=== PATIENT | male | born 1980 | race Caucasian/White ===

== ENCOUNTER → 2016-10-04 | Day surgery (SDC) | payer OTHER ==
[2016-10-03 15:20] VITALS: BMI 40.0
[~2016-10-04] VITALS: Ht 175.3 cm; Wt 124.1 kg
[~2016-10-04] MED LIST: DIAZ-165 PO; IBUP-1451 PO; LIDOCAINE HCL 2% 2 ML VIAL (20MG/ML) ONE; MIDAZOLAM HCL 1 MG/ML 2ML VIAL ONE; OMEP20TA PO; ONDANSETRON INJ 2 MG/ML 2 ML VIAL IV PRN; PARO40TA2 PO; PROPOFOL IV EMULSION 10 MG/ML 20 ML VIAL IV ONE; TRAM-10 PO
[2016-10-04 08:39] VITALS: TEMP 36.8; Ht 175.3 cm; Wt 124.1 kg
--- NOTE | 2016-10-04 09:06 | Endo History and Physical ---
History & Physical Date of Service: Oct 04, 2016. Chief Complaint: hx polyps, blood in stool Referring Physician: Dr Andujar History of Present Illness Patient with a personal and family history of colon polyp for a surveillance colonoscopy today. Past Surgical History Hx Cardiac Surgery: No Hx Internal Defibrillator: No Hx Pacemaker: No Hx Abdominal Surgery: Yes (appy. colonoscopy) Hx of Implantable Prosthesis: No Hx Post-Op Nausea and Vomiting: No Hx Cancer Surgery: No Hx Thoracic Surgery: No Hx Orthopedic: No Hx Urinary Tract Surgery: No Family History Polyp Social History Smoking Status: Former Smoker Hx Substance Use: No Hx Alcohol Use: Yes (seldom social) Allergies Coded Allergies: No Known Allergies (Unverified , 10/03/16) Current Medications Reported Home Medications Medications Dose Route/Sig Max Daily Dose Days Date Category Omeprazole 20 Mg Tab 40 Mg PO HS 10/03/16 Reported Paroxetine (Paroxetine HCl) 40 Mg Tab 2 Tab PO HS 10/03/16 Reported Vital Signs Weight (Kilograms): 124.09 Height (Feet): 5 Height (Inches): 9 Date Time Temp Pulse Resp B/P Pulse Ox O2 Delivery O2 Flow Rate FiO2 10/04/16 08:39 36.8 99 16 124/78 92 Room Air Physical Exam General Appearance: no apparent distress Respiratory/Chest: Auscultation: breath sounds normal Cardiovascular: Heart Auscultation: RRR Abdomen: Inspection & Palpation: soft Assessment and Plan Colonoscopy for evaluation of colon polyps. We have discussed the risks to include bleeding, infection, perforation, pain, and missed polyps.
--- NOTE | 2016-10-04 09:32 | Discharge Instructions ---
Endoscopy Patient Instructions Date / Procedure(s) Performed Oct 04, 2016. Colonoscopy Allergy Information Coded Allergies: No Known Allergies (Unverified , 10/03/16) Discharge Date / Findings Oct 04, 2016. 2 small colon polyps Internal hemorrhoids Medication Instructions Stopped Medication(s): paroxitine omeprazole 10/02 Reported Home Medications Medications Dose Route/Sig Max Daily Dose Days Date Category Omeprazole 20 Mg Tab 40 Mg PO HS 10/03/16 Reported Paroxetine (Paroxetine HCl) 40 Mg Tab 2 Tab PO HS 10/03/16 Reported Provider Instructions Activity Restrictions - No exercising or heavy lifting for 24 hours. - Do not drink alcohol the day of the procedure. - Do not drive a car or operate machinery until the day after the procedure. - Do not make any important decisions or sign important papers in 24 hours after the procedure. Following Day: - Return to full activity which may include returning to work/school. Diet Start your diet with liquids and light foods (jello, soup, juice, toast). Then eat your usual diet if not nauseated. Treatment For Common After Affects For mild abdominal pain, bloating, or excessive gas: - Rest - Eat lightly - Lie on right side Follow-Up Information Await pathology results Colonoscopy in 3 to 5 years Anesthesia Information What You Should Know You have had a procedure that required some medicine to reduce anxiety and discomfort. This treatment is called moderate sedation. After receiving the treatment, you may be sleepy, but you will be able to breathe on your own. The effects of the treatment may last for several hours. Follow these instructions along with Activity/Diet recommendations noted above: * Do NOT do anything where dizziness or clumsiness would be dangerous. * Rest quietly at home today, then you can be up and about tomorrow. * Have a responsible person stay with you the rest of today. * You may have had an I.V. today. If so, you may take the dressing off later today. Recommendations Call your doctor if: * Trouble breathing * Continuous vomiting for more than 24 hours * Temperature above 101 degrees * Severe abdominal pain or bloating * Pain not relieved by pain medicine ordered * There is increased drainage or redness from any incision * A large amount of rectal bleeding greater than 2-3 tablespoons. (If you had a polyp/s removed or have hemorrhoids, a small amount of blood - from the rectum is to be expected.) * You have any unanswered questions or concerns. IN THE EVENT OF A SERIOUS EMERGENCY, GO TO THE NEAREST EMERGENCY ROOM Your discharge instructions were prepared by provider Bonnie Quinones. Patient Instructions Signature Page Lc Medrano Patient (or Guardian) Signature/Date: I have read and understand the instructions given to me by my caregivers. Caregiver/RN/Doctor Signature/Date: The above-named patient and/or guardian has received patient instructions on this date. + Original Patient Signature Page (only) stays with chart. Please make copy for patient.
--- NOTE | 2016-10-04 09:37 | GI REPORT ---
Procedure Date: 10/04/2016 9:16 AM Procedure: Colonoscopy Indications: High risk colon cancer surveillance: Personal history of colonic polyps Medicines: Monitored Anesthesia Care Complications: No immediate complications. Estimated blood loss: Minimal. Estimated Blood Loss: Estimated blood loss was minimal. Procedure: Pre-Anesthesia Assessment: - Prior to the procedure, a History and Physical was performed, and patient medications, allergies and sensitivities were reviewed. The patient's tolerance of previous anesthesia was reviewed. - The risks and benefits of the procedure and the sedation options and risks were discussed with the patient. All questions were answered and informed consent was obtained. - Patient identification and proposed procedure were verified prior to the procedure by the physician, the nurse and the machine sole leveler. The procedure was verified in the procedure room. - Pre-procedure physical examination revealed no contraindications to sedation. - ASA Grade Assessment: II - A patient with mild systemic disease. - After reviewing the risks and benefits, the patient was deemed in satisfactory condition to undergo the procedure. - The anesthesia plan was to use monitored anesthesia care (MAC). - Immediately prior to administration of medications, the patient was re-assessed for adequacy to receive sedatives. - The heart rate, respiratory rate, oxygen saturations, blood pressure, adequacy of pulmonary ventilation, and response to care were monitored throughout the procedure. - The physical status of the patient was re-assessed after the procedure. After I obtained informed consent, the scope was passed under direct vision. Throughout the procedure, the patient's blood pressure, pulse, and oxygen saturations were monitored continuously. The scope was introduced through the anus and advanced to the terminal ileum. The colonoscopy was performed without difficulty. The patient tolerated the procedure well. The quality of the bowel preparation was good. Findings: The perianal and digital rectal examinations were normal. Pertinent negatives include normal sphincter tone. The terminal ileum appeared normal. Two sessile polyps were found in the rectum. The polyps were 5 to 6 mm in size. These polyps were removed with a cold snare. Resection was complete, but the polyp tissue was only partially retrieved. Estimated blood loss was minimal. Internal hemorrhoids were found during retroflexion. The hemorrhoids were mild. Estimated blood loss: none. The exam was otherwise without abnormality. Impression: - The examined portion of the ileum was normal. - Two 5 to 6 mm polyps in the rectum, removed with a cold snare. Complete resection. Partial retrieval. - Internal hemorrhoids. Recommendation: - Discharge patient to home (ambulatory). - Advance diet as tolerated today. - Continue present medications. - Repeat colonoscopy in 3 - 5 years for surveillance based on pathology results. - Return to GI office PRN. Bonnie Quinones D.O. Bonnie Quinones, 10/04/2016 9:36:39 AM This report has been signed electronically. Note Initiated On: 10/04/2016 9:16 AM I attest to the content of the Intraoperative Record and orders documented therein, exceptions below
[2016-10-04 10:08] VITALS: BP 129/70; PULSE 96; O2SAT 96
--- NOTE | 2016-10-04 10:12 | Anesthesiology Progress Note ---
Anesthesia Post Op Note Date & Time Oct 04, 2016 at 10:12 Vital Signs Pain Intensity: 0 Vital Signs Past 12 Hours Date Time Temp Pulse Resp B/P Pulse Ox O2 Delivery O2 Flow Rate FiO2 10/04/16 10:08 96 20 129/70 96 Room Air 10/04/16 09:51 97 20 154/80 95 Room Air 10/04/16 09:36 108 18 143/80 95 Room Air 10/04/16 08:39 36.8 99 16 124/78 92 Room Air Notes Mental Status: alert / awake / arousable Nausea / Vomiting: adequately controlled Pain: adequately controlled Airway Patency, RR, SpO2: stable & adequate BP & HR: stable & adequate Hydration State: stable & adequate Anesthetic Complications: no major complications apparent
== END | disposition home or self-care (01) ==
LOC: C.GI 08:25
PROVIDERS: ATTEND Internal Medicine Gastroenterology
DX: Z12.11 Encounter for screening for malignant neoplasm of colon (principal); Z86.010 Personal history of colon polyps; K62.1 Rectal polyp; K64.8 Other hemorrhoids; Z83.71 Family history of colonic polyps; Z90.89 Acquired absence of other organs; Z87.891 Personal history of nicotine dependence; K21.9 Gastro-esophageal reflux disease without esophagitis

== ENCOUNTER 2016-12-19 09:46 | Emergency (ER) | payer OTHER ==
[~2016-12-19] VITALS: Ht 177.8 cm; Wt 123.0 kg
[~2016-12-19 09:46] MED LIST changes: -DIAZ-165 PO; -IBUP-1451 PO; -LIDOCAINE HCL 2% 2 ML VIAL (20MG/ML) ONE; -MIDAZOLAM HCL 1 MG/ML 2ML VIAL ONE; -ONDANSETRON INJ 2 MG/ML 2 ML VIAL IV PRN; -PROPOFOL IV EMULSION 10 MG/ML 20 ML VIAL IV ONE; -TRAM-10 PO
[2016-12-19 09:50] VITALS: TEMP 36.8; Ht 177.8 cm; Wt 123.0 kg
[2016-12-19] MEDS ORDERED: TRAMADOL HCL 50 MG TAB PO STA (09:59)
[2016-12-19] MEDS ORDERED: DIAZEPAM 5MG TAB PO STA (09:59)
[2016-12-19] MEDS ORDERED: IBUP-1451 PO (10:10)
--- NOTE | 2016-12-19 10:14 | EMERGENCY ROOM VISIT NOTE ---
History Report prepared by Smith: Cammy Singh Under the Supervision of: Dr. Nabeel Jarrett M.D. First contact with patient: 09:53 Chief Complaint: BACK PAIN Stated Complaint: LOWER BACK PAIN-WORK RELATED INJURY History of Present Illness The patient is a 36 year old male who presents to the Emergency Room with complaints of persistent lower back pain starting 0830 this morning. The patient works for the [employer]. He was at work reaching for something when he got a sudden pain in his mid lower back. He rates his discomfort as an 8/10 in severity. The pain worsens with movement and he describes the pain as stabbing. He does not have pain at rest. He went to the medical area at his work where he was given some ibuprofen. He was brought to the hospital for further evaluation. He reports nausea with the pain. The pain does not radiate down to his legs. He has not had any back problems in many years. He denies any history of back surgeries. He denies any other medical problems. Source of History: patient Onset: 0830 this morning Position: back (lower) Symptom Intensity: 8/10 Quality: stabbing Timing: other (persistent) Modifying Factors (Worsening): movement Modifying Factors (Relieving): rest Associated Symptoms: + nausea Note: Pt denies leg pain. Review of Systems See HPI for pertinent positives & negatives. A total of 10 systems reviewed and were otherwise negative. Past Medical & Surgical Surgical Problems: (1) History of appendectomy Family History Diabetes mellitus FH: heart disease Hypertension Social History Smoking Status: Never Smoker Alcohol Use: occasionally Marital Status: Housing Status: lives with significant other Occupation Status: employed Current/Historical Medications Scheduled Omeprazole (Omeprazole), 40 MG PO HS Paroxetine HCl (Paroxetine), 2 TAB PO HS Scheduled PRN Diazepam (Valium), 5 MG PO TID PRN for Muscle Spasms Ibuprofen Tab (Motrin), 800 MG PO Q8H PRN for Pain Tramadol (Ultram), 100 MG PO Q4H PRN for Pain Allergies Coded Allergies: No Known Allergies (Unverified , 12/19/16) Physical Exam Vital Signs Date Time Temp Pulse Resp B/P Pulse Ox O2 Delivery O2 Flow Rate FiO2 12/19/16 09:50 36.8 93 18 127/85 96 Room Air Physical Exam GENERAL: Patient is in no acute distress. HEENT: No acute trauma, normocephalic atraumatic, mucous membranes moist, no nasal congestion, no scleral icterus. NECK: No stridor, no adenopathy, no meningismus, trachea is midline. LUNGS: Clear to auscultation bilaterally, no wheeze, no rhonchi, breath sounds equal. HEART: Without murmurs gallops or rubs, regular rate and rhythm. ABDOMEN: Soft, nontender, bowel sounds positive, no hernias, no peritonitis. BACK: No focal lumbar spine tenderness, no bony step off, pain worsens with any movement. EXTREMITIES: No cyanosis or edema, full range of motion of all the joints without pain or difficulty, no signs for acute trauma. NEUROLOGIC: Oriented x 3, no acute motor or sensory deficits, no focal weakness. SKIN: No rash, no jaundice, no diaphoresis. Medical Decision & Procedures ER Provider Diagnostic Interpretation: X-ray results as stated below per interpretation by me and the radiologist: LUMBAR SPINE 5 VIEWS HISTORY: low back pain COMPARISON: None. FINDINGS: There is no fracture. No subluxation. Minimal to very mild degenerative disc change. IMPRESSION: No fracture or subluxation within the lumbar spine. Minimal degenerative disc change. No acute process. Electronically signed by: César Jamison M.D. 12/19/2016 10:43 AM Dictated Date/Time: 12/19/2016 10:42 AM Medications Administered Medications (Trade) Dose Ordered Sig/Devan Route Start Time Stop Time Status Last Admin Dose Admin Diazepam (Valium Tab) 5 mg NOW STAT PO 12/19/16 09:59 12/19/16 10:02 DC 12/19/16 10:08 5 MG Tramadol HCl (Ultram Tab) 100 mg NOW STAT PO 12/19/16 09:59 12/19/16 10:02 DC 12/19/16 10:08 100 MG ED Course 0954: The patient was evaluated in room B10. A complete history and physical exam was performed. 0959: Tramadol HCl 100 mg PO, Diazepam 5 mg PO. 1047: I reevaluated the patient. I discussed results and discharge instructions : he verbalized understanding and agreement. The patient is ready for discharge. Medical Decision Differential diagnosis: lumbar spine fracture, lumbar sprain, musculoskeletal pain, nerve impingement, herniated disc disease. The patient presents with lower back pain. He was stretching when he felt something pull. Films of the lumbar spine are unremarkable for fracture or bony dislocation. He has not fallen or suffered significant trauma. There has been no fever. No pain radiation down his legs. The patient has a lumbar strain. He was given oral tramadol and oral Valium. He already had received ibuprofen prior to arrival. He is being discharged with the above medications to help him through the next few days. Rest, hydration and avoidance of lifting were encouraged. He will need to see a Workmen's Compensation doctor for advice on when to return to work. [place] Drug Monitoring Program Search Results: patient reviewed within database, no issues identified Impression Primary Impression: Lower back pain Additional Impression: Work related injury Scribe Attestation The scribe's documentation has been prepared under my direction and personally reviewed by me in its entirety. I confirm that the note above accurately reflects all work, treatment, procedures, and medical decision making performed by me. Departure Information Dispostion Home / Self-Care Prescriptions Diazepam (Valium) 5 Mg Tab 5 MG PO TID Y for Muscle Spasms, #12 TAB Prov: Nabeel Jarrett M.D. 12/19/16 Tramadol (Ultram) 50 Mg Tab 100 MG PO Q4H Y for Pain for 3 Days, #24 TAB Prov: Nabeel Jarrett M.D. 12/19/16 Referrals Allegra Andujar M.D. (PCP) Forms HOME CARE DOCUMENTATION FORM, IMPORTANT VISIT INFORMATION, Work Instructions Patient Instructions My [facility] [employer] Additional Instructions ice to the area for 30 minutes at a tiime for the next 2 days, after 2 days switch to heat stretching and massage can be helpful no lifting or bending for now see workmans comp doctor for timing and info about returning to work--could use [facility]---[phone] ibuprofen 800 mg 3x per day for 5 days valium 3x per day for muscle relaxation tramadol 1-2 tab every 4 hour for more severe pain return if worsening Problem Qualifiers
--- NOTE | 2016-12-19 10:44 | DIAGNOSTIC IMAGING REPORT ---
LUMBAR SPINE 5 VIEWS HISTORY: low back pain COMPARISON: None. FINDINGS: There is no fracture. No subluxation. Minimal to very mild degenerative disc change. IMPRESSION: No fracture or subluxation within the lumbar spine. Minimal degenerative disc change. No acute process. Electronically signed by: César Jamison M.D. 12/19/2016 10:43 AM Dictated Date/Time: 12/19/2016 10:42 AM
[2016-12-19] MEDS ORDERED: TRAM-10 PO (10:54)
[2016-12-19] MEDS ORDERED: DIAZ-165 PO (10:54)
[2016-12-19 11:15] VITALS: BP 122/79; PULSE 88; O2SAT 98
== END 2016-12-19 11:16 | disposition home or self-care (01) ==
LOC: C.EDB 09:48
DX: M54.5 Low back pain (principal); Y99.0 Civilian activity done for income or pay; Z83.3 Family history of diabetes mellitus; Z82.49 Family history of ischemic heart disease and other diseases of the circulatory system

== ENCOUNTER 2017-07-29 07:28 | Observation (INO) | payer OTHER ==
[~2017-07-29] VITALS: Ht 177.8 cm; Wt 124.0 kg
[~2017-07-29 07:28] MED LIST changes: +IBUP-1451 PO
--- NOTE | 2017-07-29 07:41 | EMERGENCY ROOM VISIT NOTE ---
History Report prepared by Smith: Calista Andujar Under the Supervision of: Dr. Nabeel Jarrett M.D. First contact with patient: 07:29 Stated Complaint: CHEST PAIN History of Present Illness The patient is a 37 year old male who presents to the Emergency Room with complaints of chest pain beginning a little over an hour ago. The patient states that he was driving a work vehicle when he got a severe sharp chest pain. He states that he also was sweating, nauseous, and had shortness of breath. The pain worsened with breathing. He reports that he currently has chest tightness and currently rates his pain at a 3/10. The patient was given aspirin and 2 squirts of Nitroglycerin prior to arrival, which he states helped to alleviate his pain. The patient denies having symptoms like this the last couple of days. He denies a history of heart attacks, asthma, and blood clots. He does report a history of hyperlipidemia. The patient denies travel in the last couple of months. He reports that he used to smoke a pack per day for 12 years, but that he quit 3-4 years ago. Source of History: patient Onset: little over an hour ago Position: chest Symptom Intensity: severe Quality: sharp Associated Symptoms: + diaphoresis, + SOB, + nausea Review of Systems See HPI for pertinent positives & negatives. A total of 10 systems reviewed and were otherwise negative. Past Medical & Surgical Medical Problems: (1) Chest pain Surgical Problems: (1) History of appendectomy Family History Diabetes mellitus FH: heart disease Hypertension Social History Smoking Status: Former Smoker Alcohol Use: occasionally Marital Status: Housing Status: lives with significant other Occupation Status: employed Current/Historical Medications Scheduled Omeprazole (Omeprazole), 40 MG PO HS Paroxetine HCl (Paroxetine), 2 TAB PO HS Allergies Coded Allergies: No Known Allergies (Unverified , 07/29/17) Physical Exam Vital Signs Date Time Temp Pulse Resp B/P (MAP) Pulse Ox O2 Delivery O2 Flow Rate FiO2 07/29/17 10:00 87 20 106/62 96 Room Air 07/29/17 09:13 77 20 111/70 94 Room Air 07/29/17 08:16 81 20 108/66 95 Room Air 07/29/17 07:38 94 Room Air 07/29/17 07:33 103 07/29/17 07:31 94 Room Air 07/29/17 07:31 36.6 107 20 144/79 94 Room Air Physical Exam GENERAL: Patient is in no acute distress. HEENT: No acute trauma, normocephalic atraumatic, mucous membranes moist, no nasal congestion, no scleral icterus. NECK: No stridor, no adenopathy, no meningismus, trachea is midline. LUNGS: Clear to auscultation bilaterally, no wheeze, no rhonchi, breath sounds equal. HEART: Mildly tachycardic with a regular rhythm. No murmurs. Chest: Nontender chest wall. ABDOMEN: Soft, nontender, bowel sounds positive, no hernias, no peritonitis. EXTREMITIES: No cyanosis or edema, full range of motion of all the joints without pain or difficulty, no signs for acute trauma. NEUROLOGIC: Oriented x 3, no acute motor or sensory deficits, no focal weakness. SKIN: No rash, no jaundice, no diaphoresis. Medical Decision & Procedures ER Provider Diagnostic Interpretation: Radiology results as stated below per my review and radiologist interpretation: CHEST ONE VIEW PORTABLE CLINICAL HISTORY: Atypical chest pain COMPARISON STUDY: No previous studies for comparison. FINDINGS: The heart is at the upper limits of normal in size. There is mild interstitial thickening which may in part be related to technical factors. There is no focal pulmonary consolidation. There is no overt failure. There is no pleural fluid.[ IMPRESSION: AP portable study. No evidence of focal pulmonary consolidation Electronically signed by: Mohan Bruce M.D. 07/29/2017 8:04 AM Dictated Date/Time: 07/29/2017 8:[address] ANGIOGRAM OF THE CHEST CLINICAL HISTORY: Atypical chest pain with diaphoresis nausea. Pain radiates the shoulder and back. COMPARISON STUDY: Chest x-ray dated 07/29/2017 TECHNIQUE: Following the IV administration of 115 mL of Optiray-320, CT angiogram of the thorax was performed from the thoracic inlet to the lung bases utilizing the pulmonary embolus protocol. Images are reviewed in the axial, sagittal, and coronal planes. IV contrast was administered without complication. MIP imaging was performed. A dose lowering technique was utilized adhering to the principles of ALARA. CT DOSE: 723.10 mGy.cm FINDINGS: There is a multinodular thyroid gland including a 24 mm left lobe thyroid nodule. There is mild hepatic steatosis. No pathologically enlarged axillary mediastinal or hilar lymph nodes were visualized. There was no evidence of thoracic aortic dilatation. There were no pulmonary artery filling defects to indicate acute pulmonary embolism. No pleural effusions are visualized. There is no focal pulmonary consolidation. There are dependent atelectatic changes with areas of air trapping. IMPRESSION: 1. No evidence of acute pulmonary embolism 2. No evidence of focal pulmonary consolidation 3. Dependent atelectatic changes with areas of air trapping Electronically signed by: Mohan Bruce M.D. 07/29/2017 9:12 AM Dictated Date/Time: 07/29/2017 9:07 AM Laboratory Results 07/29/17 07:35 07/29/17 07:35 07/29/17 09:46 Test 07/29/17 07:35 07/29/17 09:46 Red Blood Count 5.17 M/uL (4.7-6.1) Mean Corpuscular Volume 84.1 fL (80-100) Mean Corpuscular Hemoglobin 31.3 pg (25-34) Mean Corpuscular Hemoglobin Concent 37.2 g/dl (32-36) RDW Standard Deviation 39.4 fL (36.4-46.3) RDW Coefficient of Variation 13.0 % (11.5-14.5) Mean Platelet Volume 10.8 fL (7.4-10.4) Prothrombin Time 10.0 SECONDS (9.0-12.0) Prothromb Time International Ratio 1.0 (0.9-1.1) Activated Partial Thromboplast Time 27.3 SECONDS (21.0-31.0) Partial Thromboplastin Ratio 1.1 Anion Gap 11.0 mmol/L (3-11) Est Creatinine Clear Calc Drug Dose 159.3 ml/min Estimated GFR () 129.0 Estimated GFR (Non- 111.3 BUN/Creatinine Ratio 10.3 (10-20) Calcium Level 8.8 mg/dl (8.5-10.1) Total Bilirubin 0.5 mg/dl (0.2-1) Alanine Aminotransferase (ALT/SGPT) 57 U/L (12-78) Alkaline Phosphatase 67 U/L (45-117) Total Protein 7.0 gm/dl (6.4-8.2) Albumin 3.8 gm/dl (3.4-5.0) Globulin 3.2 gm/dl (2.5-4.0) Albumin/Globulin Ratio 1.2 (0.9-2) Aspartate Amino Transf (AST/SGOT) U/L (15-37) Total Creatine Kinase U/L (39-308) Laboratory results reviewed by me. Medications Administered Medications (Trade) Dose Ordered Sig/Devan Route Start Time Stop Time Status Last Admin Dose Admin Nitroglycerin (Nitroglycerin 2% Oint) 1 inch NOW STAT EXT 07/29/17 09:25 07/29/17 09:26 DC 07/29/17 09:25 1 INCH ECG Indication: chest pain Rate (beats per minute): 104 Rhythm: sinus tachycardia Findings: no acute ischemic change, no ectopy, other (possible old anterior infarct) ED Course 07: The patient was evaluated in room A2. A complete history and physical exam was performed. 919: I checked on the patient and updated him on his results. 25: Ordered Nitroglycerin 1 inch EXT. 0941: Upon reexamination the patient is resting. I discussed results and treatment plan with the patient. He verbalizes agreement and understanding. [facility] We discussed the patient's results and findings. The patient will be evaluated by Dr. Fuentes for further management. Medical Decision The patient is a 37 year old male who presents to the ED with complaints of chest pain. Differential diagnoses considered include musculoskeletal pain, aortic dissection, pulmonary embolism, pneumonia, myocardial infarction, anemia , and electrolyte imbalance. There is no leukocytosis or concerning anemia. No significant electrolyte abnormality, kidney failure or hepatitis. There is no coagulopathy. EKG showed a mild sinus tachycardia, no acute ischemia. Cardiac enzyme testing times one is not consistent with acute cardiac injury. Chest film did not show pneumonia, mediastinal widening or pneumothorax. Chest CT does not show evidence for PE or for aortic dissection. The patient presents with precordial chest pain. He had received aspirin prior to arrival. He did receive some nitro paste while in the ER. His pain seems to have improved with the nitroglycerin and aspirin. The lab did contact us. The patient had so much lipid in his blood that some tests could not be run. The patient has a family history of coronary disease. He has a very high cholesterol based on the lab phone call, he is a previous smoker. With his cardiac risk factors, a hospital stay was felt warranted. I spoke to the patient and case management. The on-call hospitalist was consulted. Medication Reconcilliation Current Medication List: was personally reviewed by me Blood Pressure Screening Patient's blood pressure: Elevated blood pressure Blood pressure disposition: Elevated BP felt to be situational Consults Time Called: [phone] Consulting Physician: Dr. Alex Hale Returned Call: [phone] Discussed the patient's case. The patient will be evaluated for further management. Impression Primary Impression: Precordial chest pain Scribe Attestation The scribe's documentation has been prepared under my direction and personally reviewed by me in its entirety. I confirm that the note above accurately reflects all work, treatment, procedures, and medical decision making performed by me. Departure Information Dispostion Being Evaluated By Hospitalist Allegra Canales M.D. (PCP)
[2017-07-29 07:49] LABS: HEMATOCRIT 43.5 % (42-52); HEMOGLOBIN 16.2 g/dL (14.0-18.0); MEAN CELL VOLUME 84.1 fL (80-100); MEAN CORPUSCULAR HEMOGLOBIN 31.3 pg (25-34); MEAN CORPUSCULAR HGB CONC 37.2 g/dl (32-36); MEAN PLATELET VOLUME 10.8 fL (7.4-10.4); PLATELET COUNT 205 K/uL (130-400); RED CELL DISTRIBUTION WIDTH SD 39.4 fL (36.4-46.3); WHITE BLOOD COUNT 9.11 K/uL (4.8-10.8)
[2017-07-29 07:59] LABS: PTT PATIENT 27.3 SECONDS (21.0-31.0)
[2017-07-29] MEDS ORDERED: OPTIRAY 320 IV PRN (08:00)
--- NOTE | 2017-07-29 08:05 | DIAGNOSTIC IMAGING REPORT ---
CHEST ONE VIEW PORTABLE CLINICAL HISTORY: Atypical chest pain COMPARISON STUDY: No previous studies for comparison. FINDINGS: The heart is at the upper limits of normal in size. There is mild interstitial thickening which may in part be related to technical factors. There is no focal pulmonary consolidation. There is no overt failure. There is no pleural fluid.[ IMPRESSION: AP portable study. No evidence of focal pulmonary consolidation Electronically signed by: Mohan Bruce M.D. 07/29/2017 8:04 AM Dictated Date/Time: 07/29/2017 8:03 AM
[2017-07-29 08:31] LABS: ALBUMIN 3.8 gm/dl (3.4-5.0); ALKALINE PHOSPHATASE 67 U/L (45-117); ALT/SGPT 57 U/L (12-78); BLOOD UREA NITROGEN 9 mg/dl (7-18); CALCIUM 8.8 mg/dl (8.5-10.1); CARBON DIOXIDE 20 mmol/L (21-32); CKMB 1.1 ng/ml (0.5-3.6); CREATININE 0.85 mg/dl (0.60-1.40); GLUCOSE 99 mg/dl (70-99); SODIUM 138 mmol/L (136-145)
--- NOTE | 2017-07-29 09:14 | DIAGNOSTIC IMAGING REPORT ---
CT ANGIOGRAM OF THE CHEST CLINICAL HISTORY: Atypical chest pain with diaphoresis nausea. Pain radiates the shoulder and back. COMPARISON STUDY: Chest x-ray dated 07/29/2017 TECHNIQUE: Following the IV administration of 115 mL of Optiray-320, CT angiogram of the thorax was performed from the thoracic inlet to the lung bases utilizing the pulmonary embolus protocol. Images are reviewed in the axial, sagittal, and coronal planes. IV contrast was administered without complication. MIP imaging was performed. A dose lowering technique was utilized adhering to the principles of ALARA. CT DOSE: 723.10 mGy.cm FINDINGS: There is a multinodular thyroid gland including a 24 mm left lobe thyroid nodule. There is mild hepatic steatosis. No pathologically enlarged axillary mediastinal or hilar lymph nodes were visualized. There was no evidence of thoracic aortic dilatation. There were no pulmonary artery filling defects to indicate acute pulmonary embolism. No pleural effusions are visualized. There is no focal pulmonary consolidation. There are dependent atelectatic changes with areas of air trapping. IMPRESSION: 1. No evidence of acute pulmonary embolism 2. No evidence of focal pulmonary consolidation 3. Dependent atelectatic changes with areas of air trapping Electronically signed by: Mohan Bruce M.D. 07/29/2017 9:12 AM Dictated Date/Time: 07/29/2017 9:07 AM
[2017-07-29] MEDS ORDERED: NITROGLYCERIN OINT 2% 1GM PACKET EXT STA (09:25)
[2017-07-29] MEDS ORDERED: NITROGLYCERIN 0.4 MG SL PER TAB CHARGE SL PRN (11:00)
--- NOTE | 2017-07-29 11:29 | History and Physical ---
History & Physical Date & Time of Service: Jul 29, 2017 at 11:29 Chief Complaint: Chest Pain Primary Care Physician: Allegra Andujar M.D. History of Present Illness Source: patient, hospital records, other (partner) 37 yo with PMH of GERD, Dyslipidemia came to the ER for chest pain. Pt said that this morning while driving his work vehicle, he developed severe sharp mid sternal chest pain. he said that the pain was constant, radiating to his left shoulder. Chest pain was associated with sweating, nauseous and SOB. Pt said that in the ER he was given 2 aspirin and nitro and after a few minutes pain resolved. Pt said that he had blood work done for cholesterol and his lipid was elevated. He was given statin and aspirin by the [facility]. Pt said that he has not starting to take them. Pt said that he has history of GERD and the night before he had pasta at [employer]. Pt said that he does have a family hx of heart attack. (Grandfather at age 52 from heart attack and his 2 uncles had heart attack). Currently denies any chest pain, palpitation, dizziness and SOB. Past Medical/Surgical History Surgical Problems: (1) History of appendectomy Status: Resolved Family History Diabetes mellitus FH: heart disease Hypertension Social History Smoking Status: Former Smoker Alcohol Use: socially Marital Status: Occupational Status: employed Allergies Coded Allergies: No Known Allergies (Unverified , 07/29/17) Home Medications Scheduled Omeprazole (Omeprazole), 40 MG PO HS Paroxetine HCl (Paroxetine), 2 TAB PO HS Review of Systems Constitutional: No fever, No chills, No weight loss, No weakness Eyes: No worsening of vision, No eye pain ENT: No nasal symptoms, No sore throat Respiratory: No cough, No sputum, No dyspnea at rest Cardiovascular: + chest pain, + palpitations Abdomen: + nausea, + vomiting, + diarrhea, No pain Musculoskeletal: No joint pain, No calf pain Genitourinary - Male: No hematuria, No dysuria Neurologic: No memory loss, No paralysis Psychiatric: No depression symptoms, No anxiety Endocrine: No fatigue Hematologic / Lymphatic: No abnormal bleeding/bruising, No night sweats Integumentary: No rash, No itch Allergic / Immunologic: No environmental allergies Physical Exam Vital Signs Date Time Temp Pulse Resp B/P (MAP) Pulse Ox O2 Delivery O2 Flow Rate FiO2 12/24/17 11:02 82 18 108/61 92 Room Air 07/29/17 10:00 87 20 106/62 96 Room Air 07/29/17 09:13 77 20 111/70 94 Room Air 07/29/17 08:16 81 20 108/66 95 Room Air 07/29/17 07:38 94 Room Air 07/29/17 07:33 103 07/29/17 07:31 94 Room Air 07/29/17 07:31 36.6 107 20 144/79 94 Room Air General Appearance: WD/WN, no apparent distress Eyes: normal inspection, PERRL, EOMI ENT: normal ENT inspection, hearing grossly normal Neck: supple, no JVD Respiratory/Chest: lungs clear, normal breath sounds, no respiratory distress, no accessory muscle use Cardiovascular: regular rate, rhythm, no edema, no JVD, no murmur Abdomen/GI: normal bowel sounds, non tender, soft Back: no CVA tenderness Extremities/Musculoskelatal: no calf tenderness Neurologic/Psych: no motor/sensory deficits, alert, oriented x 3 Skin: warm/dry, no rash Diagnostics Laboratory Results Results Past 24 Hours Test 07/29/17 07:35 07/29/17 08:40 07/29/17 09:46 Range/Units White Blood Count 9.11 4.8-10.8 K/uL Red Blood Count 5.17 4.7-6.1 M/uL Hemoglobin 16.2 14.0-18.0 g/dL Hematocrit 43.5 42-52 % Mean Corpuscular Volume 84.1 80-100 fL Mean Corpuscular Hemoglobin 31.3 25-34 pg Mean Corpuscular Hemoglobin Concent 37.2 32-36 g/dl RDW Standard Deviation 39.4 36.4-46.3 fL RDW Coefficient of Variation 13.0 11.5-14.5 % Platelet Count 205 130-400 K/uL Mean Platelet Volume 10.8 7.4-10.4 fL Prothrombin Time 10.0 9.0-12.0 SECONDS Prothromb Time International Ratio 1.0 0.9-1.1 Activated Partial Thromboplast Time 27.3 21.0-31.0 SECONDS Partial Thromboplastin Ratio 1.1 Sodium Level 138 136-145 mmol/L Potassium Level 3.5-5.1 mmol/L Chloride Level 108 98-107 mmol/L Carbon Dioxide Level 20 21-32 mmol/L Anion Gap 11.0 3-11 mmol/L Blood Urea Nitrogen 9 7-18 mg/dl Creatinine 0.85 0.60-1.40 mg/dl Est Creatinine Clear Calc Drug Dose 159.3 ml/min Estimated GFR () 129.0 Estimated GFR (Non- 111.3 BUN/Creatinine Ratio 10.3 10-20 Random Glucose 99 70-99 mg/dl Calcium Level 8.8 8.5-10.1 mg/dl Total Bilirubin 0.5 0.2-1 mg/dl Aspartate Amino Transf (AST/SGOT) 15-37 U/L Alanine Aminotransferase (ALT/SGPT) 57 12-78 U/L Alkaline Phosphatase 67 45-117 U/L Total Creatine Kinase 39-308 U/L Creatine Kinase MB 1.1 0.5-3.6 ng/ml Creatine Kinase MB Ratio 0-3.0 Troponin I < 0.015 0-0.045 ng/ml Total Protein 7.0 6.4-8.2 gm/dl Albumin 3.8 3.4-5.0 gm/dl Globulin 3.2 2.5-4.0 gm/dl Albumin/Globulin Ratio 1.2 0.9-2 Diagnostic Radiology CHEST ONE VIEW PORTABLE CLINICAL HISTORY: Atypical chest pain COMPARISON STUDY: No previous studies for comparison. FINDINGS: The heart is at the upper limits of normal in size. There is mild interstitial thickening which may in part be related to technical factors. There is no focal pulmonary consolidation. There is no overt failure. There is no pleural fluid.[ IMPRESSION: AP portable study. No evidence of focal pulmonary consolidation Electronically signed by: Mohan Bruce M.D. 07/29/2017 8:04 AM Dictated Date/Time: 07/29/2017 8:[address] ANGIOGRAM OF THE CHEST CLINICAL HISTORY: Atypical chest pain with diaphoresis nausea. Pain radiates the shoulder and back. COMPARISON STUDY: Chest x-ray dated 07/29/2017 TECHNIQUE: Following the IV administration of 115 mL of Optiray-320, CT angiogram of the thorax was performed from the thoracic inlet to the lung bases utilizing the pulmonary embolus protocol. Images are reviewed in the axial, sagittal, and coronal planes. IV contrast was administered without complication. MIP imaging was performed. A dose lowering technique was utilized adhering to the principles of ALARA. CT DOSE: 723.10 mGy.cm FINDINGS: There is a multinodular thyroid gland including a 24 mm left lobe thyroid nodule. There is mild hepatic steatosis. No pathologically enlarged axillary mediastinal or hilar lymph nodes were visualized. There was no evidence of thoracic aortic dilatation. There were no pulmonary artery filling defects to indicate acute pulmonary embolism. No pleural effusions are visualized. There is no focal pulmonary consolidation. There are dependent atelectatic changes with areas of air trapping. IMPRESSION: 1. No evidence of acute pulmonary embolism 2. No evidence of focal pulmonary consolidation 3. Dependent atelectatic changes with areas of air trapping Electronically signed by: Mohan Bruce M.D. 07/29/2017 9:12 AM Dictated Date/Time: 07/29/2017 9:07 AM Impression Assessment and Plan Chest pain Might be related to GERD Need to r/o ACS Troponin negative EKG showed no ischemic changes Given 2 aspirin in the ER Will check troponinx2 Check Lipid panel, echo and EKG in am Monitor in telemetry Continue aspirin Dyslipidemia Pt was prescribed statin and has not taken it Will check lipid panel Will start on atorvastatin advised pt to follow a low cholesterol diet GERD On PPI DVT px Ambulate/SCDs Code status Full code Disposition Will monitor in telemetry Level of Care Telemetry Resuscitation Status FULL RESUSCITATION VTE Prophylaxis VTE Risk Assessment Done? Y/N: Yes Risk Level: Low Given or contraindicated: SCD's
--- NOTE | 2017-07-29 12:55 | NUR ---
A/Obs.- Patient admitted to room 285-2 with chest pain from ER. Arrived to floor via litter at 1230. Self ambulated into room. Oriented to room. Vitals taken. Assessment completed. Reports chest pain of 2 on 0-10 scale. Monitor applied. Fall and code word papers signed. Currently filling out admission packet. Call robb within reach. Will continue to monitor.
[2017-07-29] MEDS ORDERED: SODIUM CHLORIDE 0.9% 1000ML 1,000 ML IV SCH (13:00)
[2017-07-29 13:09] VITALS: BP 121/75; PULSE 18; PULSE 96; TEMP 36.8; O2SAT 94; Ht 177.8 cm; Wt 124.0 kg
[2017-07-29] MEDS ORDERED: IV FLUIDS COMPLETED PRN (14:30)
[2017-07-29 14:56] LABS: CKMB 1.2 ng/ml (0.5-3.6)
--- NOTE | 2017-07-29 16:00 | NUR ---
A-Patient resting in bed. SR on monitor. Denies any pain. IVF infusing at 100ml/hr. Call robb within reach. Will continue to monitor.
[2017-07-29 16:22] VITALS: BP 111/67; PULSE 88; TEMP 37; O2SAT 94
--- NOTE | 2017-07-29 16:26 | ECHOCARDIOGRAM REPORT ---
*NOTICE TO RECEIVING [employer] This information is strictly Confidential and protected under [place] law. [place] law prohibits you from making any further disclosure of this information unless further disclosure is expressly permitted by the written consent of the person to whom it pertains or is authorized by law. A general authorization for the release of medical or other information is not sufficient for this purpose. Hospital accepts no responsibility if the information is made available to any other person, INCLUDING THE PATIENT. Interpretation Summary * Name: ROSEMARY HINES Study Date: 07/29/2017 01:35 PM BP: 106/62 mmHg * Patient Location: [facility]\S\N286\S\2 HR: 82 * : 1980 (M/d/yyyy) Gender: Male Height: 71 in * Age: 37 yrs Ethnicity: [place] Weight: 280 lb * Ordering Physician: Ruthie Gray * Referring Physician: Self, Referred * Performed By: Reese Kang RDCS * * Reason For Study: Chest pain * BSA: 2.4 m2 * -- Conclusions -- * The left ventricle is normal in size. * There is normal left ventricular wall thickness. * Ejection Fraction = 55-60%. * Left ventricular systolic function is normal. * The left ventricular wall motion is normal. * The right ventricle is normal in size and function. * The right ventricular systolic function is normal as assessed by tricuspid annular plane systolic excursion (TAPSE) (normal >1.5 cm). * Normal LA pressures Procedure Details * A complete two-dimensional transthoracic echocardiogram was performed (2D, M-mode, Doppler and color flow Doppler). * The study was technically adequate. Left Ventricle * The left ventricle is normal in size. * There is normal left ventricular wall thickness. * Ejection Fraction = 55-60%. * Left ventricular systolic function is normal. * The left ventricular wall motion is normal. Right Ventricle * The right ventricle is normal in size and function. * The right ventricular systolic function is normal as assessed by tricuspid annular plane systolic excursion (TAPSE) (normal >1.5 cm). Atria * The left atrial size is normal. * Right atrial size is normal. Mitral Valve * The mitral valve is grossly normal. * There is no mitral regurgitation noted. Tricuspid Valve * The tricuspid valve is not well visualized, but is grossly normal. * There is trace tricuspid regurgitation. Aortic Valve * The aortic valve is trileaflet. Pulmonic Valve * The pulmonic valve is not well seen, but is grossly normal. Great Vessels * The aortic root is normal size. Pericardium/Pleural * There is no pericardial effusion. Great Vessels * Normal inferior vena cava diameter and respiratory variation suggests normal central venous pressure. Left Ventricular Diastolic Function * Normal LA pressures MMode 2D Measurements and Calculations IVSd 1.2 cm IVSs 1.8 cm LVIDd 4.5 cm LVIDs 2.8 cm LVPWd 1.2 cm LVPWs 1.9 cm IVS/LVPW 10 FS 38.0 % EDV(Teich) 90.6 ml ESV(Teich) 28.6 ml EF(Teich) 68.4 % EDV(cubed) 88.8 ml ESV(cubed) 21.1 ml EF(cubed) 76.2 % % IVS thick 45.6 % % LVPW thick 55.4 % LV mass(C)d 203.1 grams LV mass(C)dI 83.5 grams/m\S\2 LV mass(C)s 208.8 grams LV mass(C)sI 85.8 grams/m\S\2 SV(Teich) 62.0 ml SI(Teich) 25.5 ml/m\S\2 SV(cubed) 67.7 ml SI(cubed) 27.8 ml/m\S\2 EPSS 0.70 cm Ao root diam 3.6 cm Ao root area 9.9 cm\S\2 ACS 2.1 cm LA dimension 4.6 cm asc Aorta Diam 3.8 cm LA/Ao 1.3 LVOT diam 2.3 cm LVOT area 4.2 cm\S\2 LVAd ap4 38.3 cm\S\2 LVLd ap4 10.0 cm EDV(MOD-sp4) 120.9 ml EDV(sp4-el) 124.8 ml LVAs ap4 22.1 cm\S\2 LVLs ap4 8.3 cm ESV(MOD-sp4) 54.4 ml ESV(sp4-el) 49.9 ml EF(MOD-sp4) 55.0 % EF(sp4-el) 60.0 % LVAd ap2 33.5 cm\S\2 LVLd ap2 9.6 cm EDV(MOD-sp2) 100.1 ml EDV(sp2-el) 98.7 ml LVAs ap2 19.8 cm\S\2 LVLs ap2 8.2 cm ESV(MOD-sp2) 41.2 ml ESV(sp2-el) 40.8 ml EF(MOD-sp2) 58.8 % EF(sp2-el) 58.7 % LVLd %diff -3.76 % EDV(MOD-bp) 111.6 ml LVLs %diff -1.66 % ESV(MOD-bp) 47.5 ml EF(MOD-bp) 57.4 % SV(MOD-sp4) 66.5 ml SI(MOD-sp4) 27.3 ml/m\S\2 SV(MOD-sp2) 58.9 ml SI(MOD-sp2) 24.2 ml/m\S\2 SV(MOD-bp) 64.1 ml SI(MOD-bp) 26.4 ml/m\S\2 SV(sp4-el) 74.9 ml SI(sp4-el) 30.8 ml/m\S\2 SV(sp2-el) 58.0 ml SI(sp2-el) 23.8 ml/m\S\2 Doppler Measurements and Calculations MV E max kia 59.6 cm/sec MV A max kia 57.7 cm/sec MV E/A 1.0 MV dec time 0.23 sec Ao V2 max 105.6 cm/sec Ao max PG 4.5 mmHg Ao max PG (full) 1.6 mmHg RATNA(V,A) 3.3 cm\S\2 RATNA(V,D) 3.3 cm\S\2 LV V1 max PG 2.8 mmHg LV V1 max 84.1 cm/sec PA V2 max 80.8 cm/sec PA max PG 2.6 mmHg
[2017-07-29 19:39] VITALS: BP 123/74; PULSE 77; TEMP 37.2; O2SAT 94
[2017-07-29 20:00] VITALS: O2SAT 94
--- NOTE | 2017-07-29 20:00 | NUR ---
A/OBS PATIENT IS ALERT AND ORIENTED. DENIES CHEST PAIN. NSR ON MONITOR. INDEPENDENT IN ROOM. NO CHANGES TO PLAN OF CARE.
[2017-07-29 20:08] LABS: CKMB 0.9 ng/ml (0.5-3.6)
[2017-07-29] MEDS ORDERED: PAROXETINE 20 MG TAB PO SCH (21:00)
[2017-07-29] MEDS ORDERED: PANTOprazole SOD 40 MG TAB PO SCH (21:00)
[2017-07-29 23:03] VITALS: BP 107/66; PULSE 74; TEMP 36.9; O2SAT 96
[2017-07-30] VITALS: O2SAT 94
--- NOTE | 2017-07-30 00:34 | NUR ---
A/OBS: PATIENT SLEEPING AT THIS TIME. NO C/O. NSR ON THE MONITOR.
[2017-07-30 04:00] VITALS: BP 110/73; PULSE 76; TEMP 36.9; O2SAT 94; O2SAT 95
--- NOTE | 2017-07-30 04:00 | NUR ---
A/OBS: PATIENT HAS NO C/O. REMAINS NSR ON THE MONITOR.
[2017-07-30 07:18] VITALS: BP 125/74; PULSE 74; TEMP 36.6; O2SAT 97
--- NOTE | 2017-07-30 08:00 | NUR ---
a:alert and oriented x 4. lungs are clear, heart rate is regular with Normal sinus rhythm. abdomen is soft, nontender, nondistended with positive bowel sounds. skin is pink, warm, dry, and intact. no c/o pain or discomfort. saline locked at this time. resting in bed at this time. continent of bowel and bladder.
[2017-07-30 08:45] LABS: CALCIUM 8.9 mg/dl (8.5-10.1); CREATININE 0.82 mg/dl (0.60-1.40); POTASSIUM 3.7 mmol/L (3.5-5.1)
[2017-07-30] MEDS ORDERED: ASPIRIN 81 MG ECTAB PO SCH (09:00)
--- NOTE | 2017-07-30 09:11 | NUR ---
a:pt had an episode of normal sinus with PVCs, however he was ambulating the bathroom and back. no c/o pain, discomfort, sob, numbness or tingling.
--- NOTE | 2017-07-30 10:02 | NUR ---
a;obs:pt had a bedside EKG done and results show Normal Sinus Rhythm.
--- NOTE | 2017-07-30 11:05 | Progress Note ---
Medicine Progress Note Date & Time of Visit: Jul 30, 2017 at 10:45. Subjective Pt was seen and examined Lying in bed with no distress Pt said that he feels fine has not had any chest pain Denies any chest pain, palpitation, dizziness and SOB Objective Last 8 Hrs Date Time Temp Pulse Resp B/P (MAP) Pulse Ox O2 Delivery O2 Flow Rate FiO2 07/30/17 08:00 Room Air 07/30/17 07:18 36.6 74 18 125/74 (91) 97 Room Air 07/30/17 04:00 94 Room Air 07/30/17 04:00 36.9 76 20 110/73 (85) 95 Room Air Physical Exam: General- No acute distress Head- atraumatic Eyes- PERRL, EOMI ENT- oropharynx clear Neck- supple, no JVD Lungs- clear to auscultation Heart- regular rhythm; no murmur Abdomen- normal bowel sounds, soft Extremities- no pretibial edema, no calf tenderness Neuro- alert, oriented x 3; PERRL, EOMI Skin- warm & dry Laboratory Results: Last 24 Hours Test 07/29/17 13:32 07/29/17 14:25 07/29/17 19:36 07/30/17 06:51 Creatine Kinase MB Ratio Creatine Kinase MB 1.2 ng/ml 0.9 ng/ml Troponin I < 0.015 ng/ml < 0.015 ng/ml Sodium Level 140 mmol/L Potassium Level 3.7 mmol/L Chloride Level 106 mmol/L Carbon Dioxide Level 26 mmol/L Anion Gap 8.0 mmol/L Blood Urea Nitrogen 13 mg/dl Creatinine 0.82 mg/dl Est Creatinine Clear Calc Drug Dose 162.9 ml/min Estimated GFR () 130.9 Estimated GFR (Non- 113.0 BUN/Creatinine Ratio 15.3 Random Glucose 87 mg/dl Calcium Level 8.9 mg/dl Triglycerides Level 341 mg/dl Cholesterol Level 198 mg/dl HDL Cholesterol 28 mg/dl LDL Cholesterol, Calculated 102 mg/dl VLDL Cholesterol, Calculated 68 mg/dl Cholesterol/HDL Ratio 7.1 Assessment & Plan Chest pain Might be related to GERD Troponin x3 negative EKG showed no ischemic changes Continue aspirin daily LDL 102, Chol 198, Trig 302 Was starting on cholesterol med by pcp, will continue Advised pt to follow a healthy cholesterol diet Resolved Echo showed * The left ventricle is normal in size. * There is normal left ventricular wall thickness. * Ejection Fraction = 55-60%. * Left ventricular systolic function is normal. * The left ventricular wall motion is normal. * The right ventricle is normal in size and function. * The right ventricular systolic function is normal as assessed by tricuspid annular plane systolic excursion (TAPSE) (normal >1.5 cm). * Normal LA pressures Dyslipidemia Pt was prescribed statin and has not taken it Elevated triglycerides Advised pt to continue cholesterol med Follow a healthy diet GERD On PPI Pt was advised not wait to 2 hrs after eating before going to bed Stable Obesity Counseling on weight loss Diet and exercise DVT px Ambulate/SCDs Code status Full code Disposition Will discharge home today Current Inpatient Medications: Current Inpatient Medications Medications (Trade) Dose Ordered Sig/Devan Route Start Time Stop Time Status Last Admin Dose Admin Ioversol (Optiray 320) 100 ml UD PRN IV 07/29/17 08:00 08/02/17 07:59 Nitroglycerin (Nitrostat Tab) 0.4 mg UD PRN SL 07/29/17 11:00 08/28/17 10:59 Aspirin (Ecotrin Tab) 81 mg QAM PO 07/30/17 09:00 08/29/17 08:59 07/30/17 08:21 81 MG Pantoprazole Sodium (Protonix Tab) 40 mg HS PO 07/29/17 21:00 08/28/17 20:59 07/29/17 20:28 40 MG Paroxetine HCl (pAXil TAB) 80 mg HS PO 07/29/17 21:00 08/28/17 20:59 07/29/17 20:28 80 MG Miscellaneous (Iv Fluids Completed) 1 ea PRN PRN N/A 07/29/17 14:30 07/29/18 14:29
--- NOTE | 2017-07-30 11:22 | Discharge Instructions ---
Discharge Instructions Date of Service Jul 30, 2017. Admission Reason for Admission: Chest Pain Discharge Discharge Diagnosis / Problem: Chest pain, GERD, OBESITY, Thyroid nodule Discharge Goals Goal(s): Decrease discomfort, Improve function, Improve disease control Activity Recommendations Activity Limitations: resume your previous activity (as tolerated) . Instructions / Follow-Up Instructions / Follow-Up Follow up with your primary care provider within 1 week (Please call to schedule follow up appointment) Follow up a healthy diet and exercise Wait for 2hr after eating before going to bed. Check Liver enzymes between 1 to 2 weeks ( since pt has not been starting it) Seek medical attention if chest pain reoccurs. Current Hospital Diet Patient's current hospital diet: AHA Diet (Heart Healthy) Discharge Diet Recommended Diet: AHA Diet (Heart Healthy) Pending Studies Studies pending at discharge: no Laboratory Results Lipid Panel Test 07/30/17 06:51 Range/Units Triglycerides Level 341 H 0-150 mg/dl Cholesterol Level 198 0-200 mg/dl HDL Cholesterol 28 mg/dl Cholesterol/HDL Ratio 7.1 LDL Cholesterol, Calculated 102 mg/dl Medical Emergencies . Who to Call and When: Medical Emergencies: If at any time you feel your situation is an emergency, please call 911 immediately. . Non-Emergent Contact Non-Emergency issues call your: Primary Care Provider Call Non-Emergent contact if: you have any medication questions . . "Provider Documentation" section prepared by Ruthie Gray. . VTE Core Measure Inpt VTE Proph given/why not?: SCD's
[2017-07-30 11:26] VITALS: BP 144/88; PULSE 78; TEMP 37.2; O2SAT 95
[2017-07-30] MEDS ORDERED: ASPI-232 PO (11:26)
[2017-07-30] MEDS ORDERED: LPT20 PO (11:33)
--- NOTE | 2017-07-30 11:46 | NUR ---
a:obs:pt discharged to home. IV site removed, no questions with discharge instructions. has all belongings. escorted by family who are transferring him home.
--- NOTE | 2017-07-31 10:58 | Discharge Summary ---
Discharge Summary Date of Service Jul 31, 2017. Discharge Summary Admission Date: Jul 29, 2017 at 10:50 Discharge Date: Jul 30, 2017 Discharge Disposition: Home Principal Diagnosis: Atypical Chest pain Secondary Diagnoses/Problems: GERD OBESITY Dyslipidemia Procedures: Interpretation Summary * Name: ROSEMARY HINES Study Date: 07/29/2017 01:35 PM BP: 106/62 mmHg * Patient Location: [facility]\\S\\N286\\[id number]\\2 HR: 82 * : 1980 (M/d/yyyy) Gender: Male Height: 71 in * Age: 37 yrs Ethnicity: [place] Weight: 280 lb * Ordering Physician: Ruthie Gray * Referring Physician: Self, Referred * Performed By: Reese Kang RDCS * * Reason For Study: Chest pain * BSA: 2.4 m2 * -- Conclusions -- * The left ventricle is normal in size. * There is normal left ventricular wall thickness. * Ejection Fraction = 55-60%. * Left ventricular systolic function is normal. * The left ventricular wall motion is normal. * The right ventricle is normal in size and function. * The right ventricular systolic function is normal as assessed by tricuspid annular plane systolic excursion (TAPSE) (normal >1.5 cm). * Normal LA pressures Procedure Details * A complete two-dimensional transthoracic echocardiogram was performed (2D, M- mode, Doppler and color flow Doppler). * The study was technically adequate. Left Ventricle * The left ventricle is normal in size. * There is normal left ventricular wall thickness. * Ejection Fraction = 55-60%. * Left ventricular systolic function is normal. * The left ventricular wall motion is normal. Right Ventricle * The right ventricle is normal in size and function. * The right ventricular systolic function is normal as assessed by tricuspid annular plane systolic excursion (TAPSE) (normal >1.5 cm). Atria * The left atrial size is normal. * Right atrial size is normal. Mitral Valve * The mitral valve is grossly normal. * There is no mitral regurgitation noted. Tricuspid Valve * The tricuspid valve is not well visualized, but is grossly normal. * There is trace tricuspid regurgitation. Aortic Valve * The aortic valve is trileaflet. Pulmonic Valve * The pulmonic valve is not well seen, but is grossly normal. Great Vessels * The aortic root is normal size. Pericardium/Pleural * There is no pericardial effusion. Great Vessels * Normal inferior vena cava diameter and respiratory variation suggests normal central venous pressure. Left Ventricular Diastolic Function * Normal LA pressures * CT ANGIOGRAM OF THE CHEST CLINICAL HISTORY: Atypical chest pain with diaphoresis nausea. Pain radiates the shoulder and back. COMPARISON STUDY: Chest x-ray dated 07/29/2017 TECHNIQUE: Following the IV administration of 115 mL of Optiray-320, CT angiogram of the thorax was performed from the thoracic inlet to the lung bases utilizing the pulmonary embolus protocol. Images are reviewed in the axial, sagittal, and coronal planes. IV contrast was administered without complication. MIP imaging was performed. A dose lowering technique was utilized adhering to the principles of ALARA. CT DOSE: 723.10 mGy.cm FINDINGS: There is a multinodular thyroid gland including a 24 mm left lobe thyroid nodule. There is mild hepatic steatosis. No pathologically enlarged axillary mediastinal or hilar lymph nodes were visualized. There was no evidence of thoracic aortic dilatation. There were no pulmonary artery filling defects to indicate acute pulmonary embolism. No pleural effusions are visualized. There is no focal pulmonary consolidation. There are dependent atelectatic changes with areas of air trapping. IMPRESSION: 1. No evidence of acute pulmonary embolism 2. No evidence of focal pulmonary consolidation 3. Dependent atelectatic changes with areas of air trapping Electronically signed by: Mohan Bruce M.D. 07/29/2017 9:12 AM Dictated Date/Time: 07/29/2017 9:07 AM CHEST ONE VIEW PORTABLE CLINICAL HISTORY: Atypical chest pain COMPARISON STUDY: No previous studies for comparison. FINDINGS: The heart is at the upper limits of normal in size. There is mild interstitial thickening which may in part be related to technical factors. There is no focal pulmonary consolidation. There is no overt failure. There is no pleural fluid.[ IMPRESSION: AP portable study. No evidence of focal pulmonary consolidation Electronically signed by: Mohan Bruce M.D. 07/29/2017 8:04 AM Dictated Date/Time: 07/29/2017 8:03 AM Medication Reconciliation Continued Medications: Aspirin (Aspir-81) 81 Mg Tab 81 MG PO DAILY, TAB Atorvastatin (Atorvastatin Calcium) 20 Mg Tab 20 MG PO, TAB Omeprazole (Omeprazole) 20 Mg Tab 40 MG PO HS Paroxetine HCl (Paroxetine) 40 Mg Tab 2 TAB PO HS Admission Information HPI (per Admitting provider): 37 yo with PMH of GERD, Dyslipidemia came to the ER for chest pain. Pt said that this morning while driving his work vehicle, he developed severe sharp mid sternal chest pain. he said that the pain was constant, radiating to his left shoulder. Chest pain was associated with sweating, nauseous and SOB. Pt said that in the ER he was given 2 aspirin and nitro and after a few minutes pain resolved. Pt said that he had blood work done for cholesterol and his lipid was elevated. He was given statin and aspirin by the [place]. Pt said that he has not starting to take them. Pt said that he has history of GERD and the night before he had pasta at [employer]. Pt said that he does have a family hx of heart attack. (Grandfather at age 52 from heart attack and his 2 uncles had heart attack). Currently denies any chest pain, palpitation, dizziness and SOB. Physical Exam (per Admitting): General Appearance: WD/WN, no apparent distress Eyes: normal inspection, PERRL, EOMI ENT: normal ENT inspection, hearing grossly normal Neck: supple, no JVD Respiratory/Chest: lungs clear, normal breath sounds, no respiratory distress, no accessory muscle use Cardiovascular: regular rate, rhythm, no edema, no JVD, no murmur Abdomen/GI: normal bowel sounds, non tender, soft Back: no CVA tenderness Extremities/Musculoskelatal: no calf tenderness Neurologic/Psych: no motor/sensory deficits, alert, oriented x 3 Skin: warm/dry, no rash Hospital Course Chest pain Might be related to GERD Troponin x3 negative EKG showed no ischemic changes Continue aspirin daily LDL 102, Chol 198, Trig 302 Was starting on cholesterol med by pcp, will continue Advised pt to follow a healthy cholesterol diet Resolved Echo showed * The left ventricle is normal in size. * There is normal left ventricular wall thickness. * Ejection Fraction = 55-60%. * Left ventricular systolic function is normal. * The left ventricular wall motion is normal. * The right ventricle is normal in size and function. * The right ventricular systolic function is normal as assessed by tricuspid annular plane systolic excursion (TAPSE) (normal >1.5 cm). * Normal LA pressures Dyslipidemia Pt was prescribed statin and has not taken it Elevated triglycerides Advised pt to continue cholesterol med Follow a healthy diet Thyroid Nodule CT showed multinodular thyroid gland including a 24 mm left lobe thyroid nodule. Follow up as an outpatient GERD On PPI Pt was advised not wait to 2 hrs after eating before going to bed Stable Obesity Counseling on weight loss Diet and exercise DVT px Ambulate/SCDs Code status Full code Disposition Will discharge home today Total time spent on discharge = 35 minutes This includes examination of the patient, discharge planning, medication reconciliation, and communication with other providers. Discharge Instructions Discharge Instructions Date of Service Jul 30, 2017. Admission Reason for Admission: Chest Pain Discharge Discharge Diagnosis / Problem: Chest pain, GERD, OBESITY Activity Recommendations Activity Limitations: resume your previous activity (as tolerated) . Instructions / Follow-Up Instructions / Follow-Up Follow up with your primary care provider within 1 week (Please call to schedule follow up appointment) Follow up a healthy diet and exercise Wait for 2hr after eating before going to bed. Check Liver enzymes between 1 to 2 weeks ( since pt has not been starting it) Seek medical attention if chest pain reoccurs. Current Hospital Diet Patient's current hospital diet: AHA Diet (Heart Healthy) Discharge Diet Recommended Diet: AHA Diet (Heart Healthy) Pending Studies Studies pending at discharge: no Laboratory Results Lipid Panel Test 07/30/17 06:51 Range/Units Triglycerides Level 341 H 0-150 mg/dl Cholesterol Level 198 0-200 mg/dl HDL Cholesterol 28 mg/dl Cholesterol/HDL Ratio 7.1 LDL Cholesterol, Calculated 102 mg/dl Medical Emergencies . Who to Call and When: Medical Emergencies: If at any time you feel your situation is an emergency, please call 911 immediately. . Non-Emergent Contact Non-Emergency issues call your: Primary Care Provider Call Non-Emergent contact if: you have any medication questions . . "Provider Documentation" section prepared by Ruthie Gray. . VTE Core Measure Inpt VTE Proph given/why not?: SCD's Additional Copies To Allegra Andujar M.D.
== END 2017-07-30 11:48 | disposition home or self-care (01) ==
LOC: EDBD 07:28 → C.EDA 07:29 → C.MED 10:50 → CANRESERV 11:04 → ENRESERV 11:04
PROVIDERS: ADMIT Internal Medicine; ATTEND Internal Medicine
DX: R07.89 Other chest pain (principal); K21.9 Gastro-esophageal reflux disease without esophagitis; E66.9 Obesity, unspecified; E78.5 Hyperlipidemia, unspecified; E04.2 Nontoxic multinodular goiter; Z79.82 Long term (current) use of aspirin; Z87.891 Personal history of nicotine dependence; Z90.49 Acquired absence of other specified parts of digestive tract; Z83.3 Family history of diabetes mellitus; Z82.49 Family history of ischemic heart disease and other diseases of the circulatory system

== ENCOUNTER → 2017-08-21 | Outpatient (CLI) | payer OTHER ==
[~2017-08-21] MED LIST changes: +ASPI-232 PO; -IBUP-1451 PO; +LPT20 PO
--- NOTE | 2017-08-21 10:29 | DIAGNOSTIC IMAGING REPORT ---
THYROID ULTRASOUND CLINICAL HISTORY: CHEST PAIN,HYPERLIPIDEMIA,NODULE/GOITER COMPARISON STUDY: Chest CT July 29, 2017. TECHNIQUE: Sonography of the thyroid gland was performed. FINDINGS: The right thyroid lobe measures 6.1 x 1.9 x 1.2 cm and the left lobe measures 6.3 x 2.3 x 1.9 cm. Isthmus measures 0.5 cm in thickness. A few subcentimeter hypoechoic mixed cystic and solid right lobe thyroid nodules suggest colloid cysts. Note is made of a 2.8 x 1.6 x 1.7 cm cystic nodule within the mid to lower pole of the left thyroid lobe. This nodule is almost entirely cystic but may have a small peripheral solid component versus debris adherent to the wall. IMPRESSION: 1. 2.8 cm left lobe thyroid nodule which is almost entirely cystic. Possible small peripheral solid component versus debris adherent to the wall. This nodule is likely benign however follow-up ultrasound guided fine-needle aspiration is recommended. 2. Mildly enlarged thyroid gland. Electronically signed by: Albaro Ospina M.D. 08/21/2017 10:27 AM Dictated Date/Time: 08/21/2017 10:23 AM
--- NOTE | 2017-08-22 08:27 | Exercise Stress Test Report ---
Exercise Stress Test Report Exercise Stress Test Report Date of Service: 08/21/2017 Exercise Stress Test Report Procedure performed: Exercise stress test Indication: Chest pain Supervising exercise equipment repair technician: Kashif Díaz MD The patient exercised for total of 8 minutes using a standard Gautam protocol The baseline EKG was normal sinus rhythm. Normal EKG There were no significant ST or T-wave changes during exercise or recovery There were no symptoms of chest pain reported during the test Baseline blood pressure was normal with normal blood pressure and heart rate response to exercise No arrhythmias the were seen during the test Kay treadmill score: 8 (low risk) Impression: Diagnostic exercise treadmill test without evidence of ischemia
== END | disposition home or self-care (01) ==
LOC: C.CPL 08:21
PROVIDERS: ATTEND Family Medicine
DX: R07.9 Chest pain, unspecified (principal); E78.5 Hyperlipidemia, unspecified; Z82.49 Family history of ischemic heart disease and other diseases of the circulatory system; E04.1 Nontoxic single thyroid nodule